=== PATIENT | male | born 1970 | race Two or more races ===

== ENCOUNTER 2024-10-13 04:22 | Emergency (ER) | payer OTHER, SELFPAY ==
--- NOTE | ~2024-10-13 | CT_ITS ---
CLINICAL HISTORY: HTN , RIVERA CT head without contrast Comparison: None Findings: Mild bilateral periventricular hypodensities are present. There is no evidence of hemorrhage, mass, mass effect, hydrocephalus. There is partial opacification of left mastoid air cells. Minimal mucosal thickening is seen in the right maxillary sinus. The orbits are unremarkable. No skull fracture. IMPRESSION: 1. No acute intracranial findings. 2. Mild chronic microvascular ischemic disease. 3. Mild left mastoid air cell and right maxillary sinus disease. This document has been electronically signed by: Alfredito Bone on 10/13/2024 05:27:13
[2024-10-13 04:30] VITALS: BP 178/102; BP 198/110; PULSE 84; PULSE 91; RESP 18; TEMP 36.7; O2SAT 95; O2SAT 96; BMI 33.9
--- NOTE | 2024-10-13 04:41 | ECG_ITS ---
Test Reason : HTN Blood Pressure : */* mmHG Vent. Rate : 74 BPM Atrial Rate : 74 BPM P-R Int : 128 ms QRS Dur : 96 ms QT Int : 396 ms P-R-T Axes : 36 -1 44 degrees QTcB Int : 439 ms Normal sinus rhythm Minimal voltage criteria for LVH, may be normal variant ( Andrew product ) Borderline ECG When compared with ECG of 15-Dec-2010 05:06, LVH noted Referred By: Freda Ordaz Electronically Signed By: JOSE ANGEL CORTEZ
--- NOTE | 2024-10-13 04:42 | ED_ITS ---
HPI - General Adult General Chief complaint: General Medical Stated complaint: High BP check 178/102, no CP/ discomfort Time Seen by Provider: 10/13/24 04:23 Source: patient and EMS Mode of arrival: EMS Limitations: no limitations History of Present Illness ED Provider: Dr. Freda Ordaz HPI narrative: Patient comes to the emergency room complaining of hypertension. Patient states that yesterday he was seen at [facility] for high blood pressure. Patient states that he was started on lisinopril 40 mg and hydrochlorothiazide 25 mg. Patient states that today he went home, before bedtime his blood pressure was a proximally 210 systolic. Patient was hoping that going to sleep it would help. Around 04:00, patient woke up to go to the bathroom, rechecked his blood pressure and it was still 210 systolic. Patient states that he has a slight headache, no chest pain or shortness of breath Related Data Previous Rx's ?Medication ?Instructions ?Recorded amlodipine 10 mg tablet 10 mg PO DAILY #90 tabs 10/13/24 Allergies Allergy/AdvReac Type Severity Reaction Status Date / Time aspirin Allergy Rash Verified 10/13/24 04:35 Penicillins Allergy Unknown Verified 10/13/24 04:35 Review of Systems 2 Review of Systems: Constitutional : No Weight loss, No Fever, No Chills, No Night Sweats, No Fatigue, No Malaise ENT/Mouth : No Hearing loss, No Ear Pain, No Nasal Congestion, No Sinus Pain, No Hoarseness, No sore throat, No Rhinorrhea, No Swallowing Difficulty Eyes: No Eye Pain, No Swelling, No Redness, No Foreign Body, No Discharge, No Vision Changes Cardiovascular : No Chest Pain, No SOB, No Dyspnea on Exertion, No Orthopnea, No Edema, No Palpitations, complaining of high blood pressure Respiratory : No Cough, No Sputum, No Wheezing, No Smoke Exposure, No Dyspnea Gastrointestinal : No Nausea, No Vomiting, No Diarrhea, No Constipation, No abdominal Pain, No Hematochezia, No Melena Genitourinary : no irregular bleeding, No Dysuria, No Urinary Frequency, No Hematuria, No Urinary Incontinence, No Urgency, No Flank Pain, No Urinary Flow Changes, No Hesitancy Musculoskeletal : No joint pain, No Myalgias, No Joint Swelling Skin : No Skin Lesions, No rash Neuro : No Weakness, No Numbness, No Paresthesias, No Loss of Consciousness, No Dizziness, complaining of mild Headache Psych : No Anxiety/Panic, No Depression, No SI/HI/AH/VH, No Social Issues, Heme/Lymph: No Bruising, No Bleeding,No Lymphadenopathy Endocrine : No Polyuria, No Polydipsia, No Temperature Intolerance [facility] Social History Social History Advance Directives: No Advance Directives Information Provided: Yes Do you have a plan to hurt others: No Plan Physical Exam ED Vital Signs: Vital Signs - 24 hr 10/13/24 04:30 10/13/24 05:02 10/13/24 05:17 Temperature 98.0 F Pulse Rate 84 80 75 Respiratory Rate 18 18 18 Blood Pressure 198/110 H 162/96 H 149/81 H Pulse Oximetry 95 Oxygen Delivery Method Room Air 10/13/24 05:37 Temperature Pulse Rate 76 Respiratory Rate 20 Blood Pressure 140/81 H Pulse Oximetry 98 Oxygen Delivery Method Room Air BMI result Body Mass Index 33.9 Const Other: Appearance: Alert. Oriented X3. No acute distress. Eyes: Pupils equal, round and reactive to light. ENT: Pharynx normal. Neck: Normal inspection. Neck supple. No lymph nodes noted. No crepitus CVS: Normal heart rate and rhythm. Pulses normal. Normal S1 and S2 Respiratory: No respiratory distress. Breath sounds normal. No Wheezing. No rales Abdomen: Soft and nontender. No rigidity. No distention. Skin: Skin warm and dry. Normal skin color. Normal skin turgor. Extremities: No lower extremity edema. No Lacerations. No Rash Neuro: Oriented X 3. No motor deficit. No sensory deficit. Moving all extremities. No slurred speech. CN 2 through 12 grossly intact Psych: calm, cooperative, normal affect Course Course Course Narrative: all of patient's labs EKG and imaging pending patient's current blood pressure 198/110, heart rate 84, patient receiving 1 dose of p.o. labetalol 100 mg Medications Administered Discontinued Medications Generic Name Dose Route Start Last Admin Trade Name Freq PRN Reason Stop Dose Admin Labetalol HCl 100 mg 10/13/24 04:43 10/13/24 04:59 Labetalol Hcl 100 Mg Tablet PO 10/13/24 04:44 100 mg ONCE ONE Administration Protocol Medical Decision Making Medical Decision Making [facility] Narrative: my interpretation of EKG: Normal sinus rhythm, heart rate 74, no ST segment depression or elevation, no T-wave inversion, QTC 439 my interpretation of labs: No significant abnormality patient's hematology or chemistry, troponin negative, BNP within normal limits. After 1 dose of p.o. labetalol, blood pressure improved to 149/81, heart rate 75 patient is already on hydrochlorothiazide 25 mg and lisinopril [address] scan of the head does not show any acute abnormality. Patient is medically cleared. Patient states that he has been very depressed, not SI or HI, patient requesting to be seen by the care team for depression. At this time, 05:40, patient's blood pressure 140/81, pulse 76, oxygen saturation 90% on room air, patient asymptomatic at this time, 06:24, patient states that he no longer wants to wait for care team, patient states that he just wants a sheet of information of numbers where he can call. At this time, we are ending physician observation Differential Diagnosis Differential Diagnoses: The differential diagnosis associated with the presentation includes ( hypertension, hypertensive urgency, anxiety, depression) Admission/Observation Consideration of admission/observation: Escalation of care including admission/observation considered ( given patient states she presentation that vitals, observation was considered) Lab Data MDM Lab Attestation statement: I reviewed the patient's lab results. 10/13/24 04:48 10/13/24 04:48 Labs: Lab Results 10/13/24 Range/Units 04:48 WBC 11.6 H (4.8-10.8) X10*3/uL RBC 5.03 (4.60-5.80) X10*6/uL Hgb 16.0 (14.0-18.0) g/dl Hct 43.6 (42.0-52.0) % MCV 86.7 (80.0-98.0) fL MCH 31.8 (27.0-33.0) pg MCHC 36.7 H (31.0-36.0) g/dl RDW 12.6 (11.0-16.0) % Plt Count 281 (160-400) X10*3/uL MPV 9.6 (9.4-12.4) fL Immature Gran % (Auto) 0.4 (0.0-0.4) % Neut % (Auto) 70.4 (45-73) % Lymph % (Auto) 18.8 L (20-40) % Isabela % (Auto) 8.3 (2-11) % Eos % (Auto) 1.5 (0-4) % Baso % (Auto) 0.6 (0-2) % Lymph # (Auto) 2.2 (1.2-4.9) X10*3/uL Isabela # (Auto) 1.0 (0.1-1.2) X10*3/uL Eos # (Auto) 0.2 (0.0-0.4) X10*3/uL Baso # (Auto) 0.1 (0.0-0.2) X10*3/uL Abs Immat Gran (auto) 0.05 H (0.00-0.03) X10*3/uL Absolute Neuts (auto) 8.2 (2.0-8.3) x10*3/uL Absolute Nucleated RBC 0.000 (0.0-0.012) X10*3/uL Nucleated RBC % (auto) 0.0 (0.0-0.2) /100WBC Sodium 136 (135-145) mmol/L Potassium 3.4 (3.3-5.1) mmol/L Chloride 101 (96-108) mmol/L Carbon Dioxide 25 (22-29) mmol/L Anion Gap 13 (12-20) BUN 18 H (9-16) mg/dL Creatinine 1.26 (0.5-1.4) mg/dL Estim Creat Clear Calc 71.5 Estimated GFR 59 Random Glucose 104 (60-115) mg/dL Calcium 9.4 (8.4-10.2) mg/dL Total Bilirubin 0.8 (0.0-1.0) mg/dL Direct Bilirubin 0.2 (0.0-0.5) mg/dL AST 26 (5-37) U/L ALT 27 (0-40) U/L Alkaline Phosphatase 84 (39-117) U/L Troponin I High Sens 5.1 (<3.5-35.0) ng/L B-Natriuretic Peptide 27 (<100) pg/mL Total Protein 7.5 (6.5-8.0) g/dL Albumin 4.3 (3.5-5.0) g/dL Independent Interpretation I performed an independent interpretation of an: EKG and CT Scan Radiology Impression Discussion of test interpretation with radiology: I have reviewed the radiologist's reading. Radiologist Impression: Mild bilateral periventricular hypodensities are present. There is no evidence of hemorrhage, mass, mass effect, hydrocephalus. There is partial opacification of left mastoid air cells. Minimal mucosal thickening is seen in the right maxillary sinus. The orbits are unremarkable. No skull fracture. Discharge Plan Discharge Clinical Impression: Hypertensive urgency, Depression Patient Disposition: Home, Self-Care Instructions: Depression (ED), Hypertensive Crisis (ED) Additional Instructions: continue taking the medications that you were prescribed, at this new medication, amlodipine. You need close follow-up with your primary care physician. Please keep a log of your blood pressures to share with your PCP. Make sure that you take your blood pressure in different settings including your house and a pharmacy for example. your medications were sent to [address] [place] [address] pharmacy in [place]. Please follow-up with your primary care physician tomorrow. If you have any worsening or new symptoms, please return to the emergency room or call 911 Prescriptions: New amlodipine 10 mg tablet 10 mg PO DAILY Qty: 90 0RF Print Language: Persian
[2024-10-13 04:53] LABS: Basophils Absolute Auto 0.1 X10*3/uL (0.0-0.2); Basophils Percent Auto 0.6 % (0-2); Eosinophils Absolute Auto 0.2 X10*3/uL (0.0-0.4); Eosinophils Percent Auto 1.5 % (0-4); Hematocrit 43.6 % (42.0-52.0); Imm Gran Abs Auto 0.05 X10*3/uL (0.00-0.03); Imm Gran Pct Auto 0.4 % (0.0-0.4); Lymphocytes Absolute Auto 2.2 X10*3/uL (1.2-4.9); Lymphocytes Percent Auto 18.8 % (20-40); MANUAL DIFF FLAG NO; Mean Corpuscular HGB Conc 36.7 g/dl (31.0-36.0); Mean Corpuscular Hemoglobin 31.8 pg (27.0-33.0); Mean Corpuscular Volume 86.7 fL (80.0-98.0); Mean Platelet Volume 9.6 fL (9.4-12.4); Monocytes Percent Auto 8.3 % (2-11); Neutrophils Absolute Auto 8.2 x10*3/uL (2.0-8.3); Neutrophils Percent Auto 70.4 % (45-73); Platelet Count 281 X10*3/uL (160-400); Red Blood Count 5.03 X10*6/uL (4.60-5.80); Red Cell Distribution Width 12.6 % (11.0-16.0); White Blood Count 11.6 X10*3/uL (4.8-10.8)
[2024-10-13] MEDS: Labetalol HCL 100 MG TABLET PO (04:59)
[2024-10-13 05:02] VITALS: BP 162/96; PULSE 80; RESP 18
[2024-10-13 05:09] LABS: Alanine Aminotransferase 27 U/L (0-40); Albumin Level 4.3 g/dL (3.5-5.0); Alkaline Phosphatase 84 U/L (39-117); Anion Gap 13 (12-20); Aspartate Amino Transferase 26 U/L (5-37); Bilirubin Direct 0.2 mg/dL (0.0-0.5); Bilirubin Total 0.8 mg/dL (0.0-1.0); Blood Urea Nitrogen 18 mg/dL (9-16); Calcium 9.4 mg/dL (8.4-10.2); Carbon Dioxide 25 mmol/L (22-29); Chloride 101 mmol/L (96-108); Creatinine Clr Calc Pharmacy 71.5; Estimated Glomerular Filt Rate 59; Glucose Random 104 mg/dL (60-115); Potassium 3.4 mmol/L (3.3-5.1); Sodium 136 mmol/L (135-145); Total Protein 7.5 g/dL (6.5-8.0)
[2024-10-13 05:12] LABS: Troponin-I High Sensitivity 5.1 ng/L (<3.5-35.0)
[2024-10-13 05:13] LABS: B Type Natriuretic Peptide 27 pg/mL (<100)
[2024-10-13 05:17] VITALS: BP 149/81; PULSE 75; RESP 18
--- OUTSIDE RECORDS SUMMARY | 2024-10-13 05:24 | XMS_ITS | Encounter Summary ---
Author Organization [facility] Address [address] [place] [address] [address] [place] [address] Care Team Providers Care Retail Sales Associate Bilingual Name Role Phone Anali Delong MD Primary Care Provider [phone] Reason for Visit * Reason Comments Med Refill Encounter Details Date Type Department Care Team ([facility] st Contact Info) Description 07/29/2023 Refill [facility] MEDICINE [address] [place] [address] Anali Delong MD [address] [place], [place] [id number] Depression, unspecified depression type Social History Tobacco Use Types Packs/Day Years Used Date Smoking Tobacco: Never Assessed Sex and Gender Information Value Date Recorded Sex Assigned at Male 05/11/2022 10:20 AM EDT Legal Sex Male 10:20 AM EDT Gender Identity Male 05/11/2022 10:20 AM EDT Sexual Orientation Lesbian or Ocampo 05/11/2022 10 :20 AM EDT documented as of this encounter Plan of Treatment Not on file documented as of this encounter Visit Diagnoses Diagnosis Depression, unspecified depression type documented in this encounter Care Teams Retail Sales Associate Bilingual Relationship Specialty Start Date End Date Anali Delong MD [address] [place] [address] PCP - General Family Medicine 06/24/18 08/05/23 documented as of this encounter
--- OUTSIDE RECORDS SUMMARY | 2024-10-13 05:24 | XMS_ITS | Clinical Summary ---
Author Organization [facility] Address [address] [facility] [address] [place] [address] Care Team Providers Care Carpet Tile Layer Name Role Phone Unavailable Primary Care Provider Unavailabl e Medications hydroCHLOROthiaz jennifer (HYDRODiuril) 25 MG tablet TAKE ONE TABLET BY MOUTH ONCE DAILY 30 tablet 11 02/25/2023 Active lisinopril 40 MG tablet TAKE ONE TABLET BY MOUTH ONCE DAILY 30 tablet 11 02/25/2023 Active QUEtiapine (SEROquel) 25 MG tabletIndication s:Depression, unspecified depression type TAKE ONE TABLET BY MOUTH TWO TIMES A DAY 60 tablet 05/31/2023 Active Social History Tobacco Use Types Packs/Day Years Used Date Smoking Tobacco: Never Assessed Sex and Gender Information Value Date Recorded Sex Assigned at Male 05/11/2022 10:20 AM EDT Legal Sex Male 10:20 AM EDT Gender Identity Male 05/11/2022 10:20 AM EDT Sexual Orientation Lesbian or Ocampo 05/11/2022 10 :20 AM EDT Last Filed Vital Signs Vital Sign Reading Time Taken Comments Blood Pressure 142/90 03/25/2022 12:09 AM EDT Pulse 88 03/25/2022 12:09 AM EDT Temperature - - Respiratory Rate - - Oxygen Saturation - - Inhaled Oxygen Concentration - - Weight 93 kg (205 lb) 03/25/2022 12:09 AM EDT Height 167.6 cm (5' 6 ) 03/25/2022 12:09 AM EDT Body Mass Index 33.09 03/25/2022 12:09 AM EDT Plan of Treatment Health Maintenance Due Date Last Done Comments CT Colonography 1969 Colonoscopy 1969 Colorectal Cancer Screening 1969 Depression Screening 1969 FIT DNA/Cologuard 1969 FIT 1969 FOBT 1969 Lipid Panel 1969 Sigmoidoscopy 1969 Alcohol/Substance Use Screening 1981 Tobacco Screening 1981 Hepatitis B Vaccines (1 of 3 - 19+ 3-dose series) 1988 Pneumococcal Vaccine: 50+ Years (2 of 2 - PCV) 01/19/2023 01/19/2022 COVID-19 Vaccine (1 - 2023-2 5 season) 2024 Influenza Vaccine (#1) 2024 2, 06/24/2018, 05/17/2007 DTaP/Tdap/Td Vaccines (2 - T d or Tdap) 05/19/2029 05/19/2019 RSV Patients and Patients Aged 60 years or older (1 - 1-dose 75+ series) 2044 Pneumococcal Vaccine: Pediatrics (0 to 5 Years) and At-Risk Patients (6 to 49) Years) Aged Out 01/19/2022 No longer eligible b ased on patient's age to complete this topic Zoster Vaccines Completed 06/29/2022, 01/19/2022 HIB Vaccines Aged Out No longer eligi ble based on patient's age to complete this topic HPV Vaccines Aged Out No longer eligi ble based on patient's age to complete this topic Hepatitis A Vaccines Aged Out No long er eligible based on patient's age to complete this topic IPV Vaccines Aged Out No longer eligi ble based on patient's age to complete this topic Meningococcal Vaccine Aged Out No linh debra eligible based on patient's age to complete this topic RSV under 20 months Aged Out No longe r eligible based on patient's age to complete this topic Rotavirus Vaccines Aged Out No longer eligible based on patient's age to complete this topic
--- OUTSIDE RECORDS SUMMARY | 2024-10-13 05:24 | XMS_ITS | Encounter Summary ---
Author Organization [facility] Address [address] [facility] [address] [place] [address] Care Team Providers Care Assistant Loan Processor Name Role Phone Anali Delong MD Primary Care Provider [phone] Reason for Visit * Reason Comments Med Refill Encounter Details Date Type Department Care Team ([facility] Contact Info) Description 02/24/2023 Refill [facility] MEDICINE [address] [place] [address] Ricarda Browne MD [address] [place] [address] Depression, unspecified depression type Social History Tobacco [...] type documented in this encounter Care Teams Assistant Loan Processor Relationship Specialty Start Date End Date nAali Delong MD [address] [place] [address] PCP - General Family Medicine 06/24/18 08/05/23 documented as of this encounter
--- OUTSIDE RECORDS SUMMARY | 2024-10-13 05:24 | XMS_ITS | Encounter Summary ---
Author Organization [employer] [place] [address] Care Team Providers Care Sheriff Name Role Phone Nandini Hernandez MD Primary Care Provider [phone] Reason for Visit * Reason Comments Chest Pain Encounter Details Date Type Department Care Team (Late st Contact Info) Description 10/11/2024 5:57 PM EDT - 10/11/2024 10:36 PM EDT Emergency [facility] Emergency [address] [place] [address] Hypertension, unspecified type (Primary Dx); Hypokalemia Discharge Disposition: Home or Self Care Social History Tobacco Use Types Packs/Day Years Used Date Smoking Tobacco: Never Assessed Comments Unknown Sex and Gender Information Value Date Recorded Sex Assigned at Female 10/11/2024 7:37 PM EDT Legal Sex Male 8:50 PM EST Gender Identity Female 10/11/2024 7:37 PM EDT Sexual Orientation Straight 10/11/2024 7: 37 PM EDT documented as of this encounter Last Filed Vital Signs Vital Sign Reading Time Taken Comments Blood Pressure 176/101 10/11/2024 10:07 PM EDT Pulse 88 10/11/2024 10:07 PM EDT Temperature 36.8 ??C (98.2 ??F) 10/11/2024 10:07 PM E DT Respiratory Rate 20 10/11/2024 10:07 PM EDT Oxygen Saturation 97% 10/11/2024 10:07 PM EDT Inhaled Oxygen Concentration - - Weight 95.3 kg (210 lb) 10/11/2024 7:03 PM EDT Height 167.6 cm (5' 6 ) 10/11/2024 7:03 PM EDT Body Mass Index 33.89 10/11/2024 7:03 PM EDT documented in this encounter Functional Status * Are you deaf or do you have serious difficulty hearing? Answer Date of Assessment Author No 10/11/2024 7:16 PM EDT Ailyn Soares RN * Are you blind or do you have serious difficulty seeing, even when wearing glasses? Answer Date of Assessment Author No 10/11/2024 7:16 PM EDT Ailyn Soares RN * Do you have serious difficulty walking or climbing stairs? Answer Date of Assessment Author No 10/11/2024 7:16 PM EDT Ailyn Soares RN * Do you have serious difficulty dressing or bathing? Answer Date of Assessment Author No 10/11/2024 7:16 PM EDT Ailyn Soares RN * Because of a physical, mental, or emotional condition, do you have serious difficulty doing errandsalone such as visiting the doctor? Answer Date of Assessment Author No 10/11/2024 7:16 PM EDT Ailyn Soares RN documented as of this encounter Mental Status * Because of a physical, mental, or emotional condition, do you have serious difficulty concentrating, remembering, or making decisions? (5 years old or older) Answer Entry Date Author No 10/11/2024 7:16 PM EDT Ailyn Soares RN documented in this encounter Discharge Instructions * Discharge Instructions* AURORA Nicolas - 10/11/2024 9:52 PM EDT Your blood pressure returned to a normal range without any intervention. Your cardiac workup otherwise today was unremarkable. You were found to have a low potassium in the emergency department whichwas repleted. I do recommend that you follow-up with your regular care provider to recheck these levels to ensure that this is not a chronic issue for you. Please call 911 or otherwise present back to the emergency department for any new or worsening symptoms of concern. * Attachments The following attachments cannot be sent through Care Everywhere. * Hypokalemia (French) documented in this encounter Discharge Disposition Disposition Code Departure Means Destination Comment s Home or Self Care documented in this encounter Progress Notes * Debi Chapman RN - 10/11/2024 5:58 PM EDT BIBA from home. VNA at home found bp 210/100. Hx of htn, compliant with home meds. Pt reports chesttightness shortly after, described as minor discomfort. Denies SOB, dizziness. documented in this encounter Miscellaneous Notes * ED Bed Hold Note - Coco Harris RN - 10/11/2024 5:57 PM EDT Bed: [facility] Expected date: Expected time: Means of arrival: Comments: 55yo cp/htn documented in this encounter Plan of Treatment Upcoming Encounters Date Type Department Care Team (Late st Contact Info) Description 02/16/2025 8:00 AM EDT Office Visit Adult Medicine [facility] [address] [place] [address] Nandini Hernandez MD [address] [place] [address] documented as of this encounter Procedures Procedure Name Priority Date/Time Associated Diagnosis Comments ECG ANNOTATED 10/12/2024 ECG ANNOTATED 10/12/2024 ECG 12-LEAD STAT 10/11/2024 7:53 PM EDT TROPONIN I HIGH SENSITIVITY STAT 10/11/2024 7:25 PM EDT XR CHEST 2 VIEWS STAT 10/11/2024 6:45 PM EDT TROPONIN I HIGH SENSITIVITY STAT 10/11/2024 6:15 PM EDT CBC WITH AUTO DIFFERENTIAL STAT 10/11/2024 6:15 PM EDT CBC AND DIFFERENTIAL STAT 10/11/2024 6:15 PM EDT MAGNESIUM STAT 10/11/2024 6:15 PM EDT LIPASE STAT 10/11/2024 6:15 PM EDT COMPREHENSIVE METABOLIC PANEL STAT 10/11/2024 6:15 PM EDT ECG 12-LEAD STAT 10/11/2024 6:04 PM EDT documented in this encounter Results * ECG-Annotated (10/12/2024) us Provider Onbase MD ECG ORDERABLES Final Result * ECG-Annotated (10/12/2024) us Provider Onbase MD ECG ORDERABLES Final Result * ECG 12 lead (10/11/2024 7:53 PM EDT) [facility] Ventricular Rate ECG 81 BPM GEMUSE Atrial Rate 81 BPM GEMUSE P-R Interval 150 ms GEMUSE QRS Duration 82 ms GEMUSE Q-T Interval 400 ms GEMUSE QTc 464 ms GEMUSE P Wave [place] 44 degrees GEMUSE R [place] -17 degrees GEMUSE T [place] 5 degrees GEMUSE ECG Interpretation Normal sinus rhythm Nonspecific T wave abnormality When compared with ECG of 11-OCT-2024 18:04, No significant change was found Confirmed by Harjinder TATE YUFENG ([id number]) on 10/12/2024 7:29:31 PM GEMUSE 10/11/2024 7:53 PM EDT 10/12/2024 7:29 PM EDT us Malcolm Mane DO ECG ORDERABLES Final Result GEMUSE * Troponin I high sensitivity (10/11/2024 7:25 PM EDT) [facility] High Sensitivity Troponin I 12 <=79 ng/L LAB CHEMISTRY METHOD 10/11/2024 7:[address] [facility] Blood Venous blood specimen / Unknown Venipuncture / Unknown 10/11/2024 7:25 PM EDT 10/11/2024 7:[address] [facility] - 10/11/2024 7:58 PM EDT High levels of biotin in samples may falsely decrease hsTroponin values. ??Use caution when interpreting hsTroponin results in patients taking biotin who exhibit renal impairment (eGFR <60) or in patients taking more than 20 mg/day of biotin. us Malcolm Mane DO LAB BLOOD ORDERABLES Final Res ult [facility] [address] [place] [address], [place] [phone] * XR Chest 2 Views (10/11/2024 6:45 PM EDT) Anatomical Region Laterality Modality Body Radiographic Melissa ging 10/12/2024 8:56 AM EDT Impressions 10/12/2024 8:56 AM EDT No acute findings. -------- FINAL REPORT -------- Dictated By: Long Wiley Dictated Date: 10/12/2024 08:56 ET Assigned Physician: Long Wiley Reviewed and Electronically Signed By: Long Wiley Signed Date: 10/12/2024 08:56 ET Workstation ID: [id number] Transcribed By: Self Edit Transcribed Date: 10/12/2024 08:56 ET Narrative 10/12/2024 8:56 AM EDT PROCEDURE: PA and lateral radiographs of the chest. HISTORY: chest pain. COMPARISON: 07/12/2022. FINDINGS: Lungs, pleural spaces, and pulmonary vasculature are normal. ??Atherosclerotic calcification of the aorta. ??Upper normal heart size. ??Mild degenerative changes of the spine. Procedure Note Long Wiley MD - 10/12/2024 PROCEDURE: PA and lateral radiographs of the chest. HISTORY: chest pain. COMPARISON: 07/12/2022. FINDINGS: Lungs, pleural spaces, and pulmonary vasculature are normal.Atherosclerotic calcification of the aorta. Upper normal heart size.Mild degenerative changes of the spine. IMPRESSION: No acute findings. -------- FINAL REPORT -------- Dictated By: Long Wiley Dictated Date: 10/12/2024 08:56 ET Assigned Physician: Long Wiley Reviewed and Electronically Signed By: Long Wiley Signed Date: 10/12/2024 08:56 ET Workstation ID: [id number] Transcribed By: Self Edit Transcribed Date: 10/12/2024 08:56 ET Malcolm Mane DO IMG XR PROCEDURES Final Result * (ABNORMAL) CBC auto differential (10/11/2024 6:15 PM EDT) Pathologist [facility] WBC 9.5 4.8 - 10.8 K/mcL LAB HEMETOLOGY METHOD 10/11/2024 6:[address] [facility] RBC 4.80 4.50 - 5.50 M/mcL LAB HEMETOLOGY METHOD 10/11/2024 6:[address] [facility] Hemoglobin 15.5 13.5 - 17.5 g/dL LAB HEMETOLOGY METHOD 10/11/2024 6:[address] [facility] Hematocrit 43.4 42.0 - 54.0 % LAB HEMETOLOGY METHOD 10/11/2024 6:[address] [facility] MCV 90.8 79.0 - 98.0 FL LAB H[facility]ETOLOGY [facility] MCH 32.4(H) 27.0 - 32.0 pcg LAB HEMETOLOGY [facility] MCHC 35.7 32.0 - 37.0 g/dL LAB HEMETOLOGY METHOD 10/11/2024 6:41 PM [facility] RDW 12.8 11.0 - 15.0 % LAB HEMETOLOGY METHOD 10/11/2024 6:41 PM [facility] Platelets 264 130 - 400 K/mcL LAB HEMETOLOGY METHOD 10/11/2024 6:41 PM [facility] MPV 10.2 7.0 - 11.0 FL LAB HEMETOLOGY METHOD 10/11/2024 6:41 PM [facility] NRBC 0.0 <1.0 % LAB HEMETOLOGY METHOD 10/11/2024 6:41 PM [facility] NRBC Absolute 0.00 <0.10 K/mcL LAB HEMETOLOGY METHOD 10/11/2024 6:41 PM [facility] Neutrophils Relative 61.1 % LAB HEMETOLOGY METHOD 10/11/2024 6:41 PM [facility] Lymphocytes Relative 26.6 % LAB HEMETOLOGY METHOD 10/11/2024 6:41 PM [facility] Monocytes Relative 8.4 % LAB HEMETOLOGY METHOD 10/11/2024 6:41 PM [facility] Eosinophils Relative 2.5 % LAB HEMETOLOGY METHOD 10/11/2024 6:41 PM [facility] Basophils Relative 1.0 % LAB HEMETOLOGY METHOD 10/11/2024 6:41 PM [facility] Immature Granulocytes Relative 0.4 % LAB HEMETOLOGY METHOD 10/11/2024 6:41 PM [facility] Neutrophils Absolute 5.78 1.50 - 7.00 K/mcL LAB HEMETOLOGY METHOD 10/11/2024 6:41 PM [facility] Lymphocytes Absolute 2.52 1.00 - 5.00 K/mcL LAB HEMETOLOGY METHOD 10/11/2024 6:[address] [facility] Monocytes Absolute 0.79 0.20 - 1.00 K/[facility] LAB HEMETOLOGY METHOD 10/11/2024 6:[address] [facility] Eosinophils Absolute 0.24 0.00 - 0.50 K/[facility] LAB HEMETOLOGY METHOD 10/11/2024 6:[address] [facility] Basophils Absolute 0.09 0.00 - 0.20 K/[facility] LAB HEMETOLOGY METHOD 10/11/2024 6:[address] [facility] Immature Granulocytes Absolute 0.04(H) 0.00 - 0.03 K/[facility] LAB HEMETOLOGY METHOD 10/11/2024 6:[address] [facility] Blood Venous blood specimen / Unknown Venipuncture / Unknown 10/11/2024 6:15 PM EDT 10/11/2024 6:33 PM EDT us Malcolm Mane DO LAB BLOOD ORDERABLES Final Res ult Performing Organization Address City/[facility]/ZIP Co de Phone Number [facility] [address] [place] [address], [place] [phone] * Magnesium (10/11/2024 6:15 PM EDT) Magnesium 2.3 1.9 - 2.6 mg/dL LAB CHEMISTRY METHOD 10/11/2024 7:[address] [facility] Blood Venous blood specimen / Unknown Venipuncture / Unknown 10/11/2024 6:15 PM EDT 10/11/2024 6:33 PM EDT us Malcolm Mane DO LAB BLOOD ORDERABLES Final Res ult [facility] [address] [place] [address], [place] [phone] * Lipase (10/11/2024 6:15 PM EDT) Pathologist [facility] Lipase 29 13 - 75 unit/L LAB CHEMISTRY METHOD 10/11/2024 7:[address] [facility] Blood Venous blood specimen / Unknown Venipuncture / Unknown 10/11/2024 6:15 PM EDT 10/11/2024 6:33 PM EDT us Malcolm Mane DO LAB BLOOD ORDERABLES Final Res ult [facility] [address] [place] [address], [place] [phone] * (ABNORMAL) Comprehensive metabolic panel (10/11/2024 6:15 PM EDT) [facility] Sodium 136 133 - 145 mmol/L LAB CHEMISTRY METHOD 10/11/2024 7:25 PM [facility] Potassium 3.3(L) 3.5 - 5.5 mmol/L LAB CHEMISTRY METHOD 10/11/2024 7:25 PM [facility] Chloride 101 96 - 110 mmol/L LAB CHEMISTRY METHOD 10/11/2024 7:25 PM [facility] CO2 27 21 - 32 mmol/L LAB CHEMISTRY METHOD 10/11/2024 7:25 PM [facility] Anion Gap 8 3 - 11 LAB CHEMISTRY METHOD 10/11/2024 7:25 PM [facility] Glucose 124(H) 70 - 100 mg/dL LAB CHEMISTRY METHOD 10/11/2024 7:25 PM [facility] BUN 17 5 - 25 mg/dL LAB CHEMISTRY METHOD 10/11/2024 7:25 PM [facility] Creatinine 1.24 0.70 - 1.30 mg/dL LAB CHEMISTRY METHOD 10/11/2024 7:25 PM [facility] eGFR 69 >=60 mL/min/1. 73m2 LAB CHEMISTRY METHOD 10/11/2024 7:25 PM [facility] Comment:Calculation based on the??Chronic Kidney Disease Epidemiology Collaboration (CKD-EPI) equation refit??without adjustment for race. BUN/Creatinine Ratio 13.7 LAB CHEMISTRY METHOD 10/11/2024 7:25 PM [facility] Calcium 9.1 8.5 - 10.5 mg/dL LAB CHEMISTRY METHOD 10/11/2024 7:25 PM [facility] AST (SGOT) 15 10 - 42 unit/L LAB CHEMISTRY METHOD 10/11/2024 7:25 PM [facility] ALT (SGPT) 27 10 - 60 unit/L LAB CHEMISTRY METHOD 10/11/2024 7:25 PM [facility] Alkaline Phosphatase 95 42 - 121 unit/L LAB CHEMISTRY METHOD 10/11/2024 7:25 PM [facility] Total Protein 7.2 6.0 - 8.0 g/dL LAB CHEMISTRY METHOD 10/11/2024 7:25 PM [facility] Albumin 3.7 3.2 - 5.0 g/dL LAB CHEMISTRY METHOD 10/11/2024 7:25 PM [facility] Total Bilirubin 0.2 0.0 - 1.4 mg/dL LAB CHEMISTRY METHOD 10/11/2024 7:25 PM [facility] Blood Venous blood specimen / Unknown Venipuncture / Unknown 10/11/2024 6:15 PM EDT 10/11/2024 6:33 PM EDT us Malcolm Mane DO LAB BLOOD ORDERABLES Final Res ult [facility] [address] [place] [address], [place] [phone] * Troponin I high sensitivity (10/11/2024 6:15 PM EDT) [facility] High Sensitivity Troponin I 9 <=79 ng/L LAB CHEMISTRY METHOD 10/11/2024 7:[address] [facility] Blood Venous blood specimen / Unknown Venipuncture / Unknown 10/11/2024 6:15 PM EDT 10/11/2024 6:[address] [facility] - 10/11/2024 7:13 PM EDT High levels of biotin in samples may falsely decrease hsTroponin values. ??Use caution when interpreting hsTroponin results in patients taking biotin who exhibit renal impairment (eGFR <60) or in patients taking more than 20 mg/day of biotin. Malcolm Mane DO LAB BLOOD ORDERABLES Final Res ult Performing Organization Address City/[facility]/ZIP Co de Phone Number [facility] [address] [place] [address], [place] [phone] * ECG 12 lead (10/11/2024 6:04 PM EDT) [facility] Ventricular Rate ECG 88 BPM GEMUSE Atrial Rate 88 BPM GEMUSE P-R Interval 130 ms GEMUSE QRS Duration 98 ms GEMUSE Q-T Interval 394 ms GEMUSE QTc 476 ms GEMUSE P Wave [place] 53 degrees GEMUSE R [place] -16 degrees GEMUSE T [place] 75 degrees GEMUSE ECG Interpretation Normal sinus rhythm Normal ECG When compared with ECG of 17-AUG-2016 15:19, No significant changes are noted Confirmed by KAYA VILLAR ([id number]) on 10/11/2024 8:26:22 PM GEMUSE 10/11/2024 6:04 PM EDT 10/11/2024 8:26 PM EDT us Malcolm Mane DO ECG ORDERABLES Final Result Performing Organization Address City/[facility]/ZIP Co de Phone Number GEMUSE documented in this encounter Visit Diagnoses Diagnosis Hypertension, unspecified type- Primary Hypokalemia Hypopotassemia documented in this encounter Administered Medications Inactive Administered Medications - up to 3 most recent administrations Medication Order MAR Action Action Date Dose Rate Site potassium chloride (KLOR-CON M20) CR tablet 20 mEq 20 mEq, oral, Once, On Wed10/11/24 at 2135, For 1 dose, Tablet may be swallowed whole (do not crush/chew/suck on) OR broken in half and each half swallowed separately OR dissolved (whole tablet) in ~4 ounces of water (allow ~2 minutes to dissolve, stir well and administer immediately). Given 10/11/2024 10:14 PM EDT 20 mEq potassium chloride (KLOR-CON M20) CR tablet 40 mEq 40 mEq, oral, Once, On Wed10/11/24 at 193, For 1 dose, Tablet may be swallowed whole (do not crush/chew/suck on) OR broken in half and each half swallowed separately OR dissolved (whole tablet) in ~4 ounces of water (allow ~2 minutes to dissolve, stir well and administer immediately). Given 10/11/2024 8:06 PM EDT 40 mEq documented in this encounter Active and Recently Administered Medications Times are shown in EDT. Scheduled Medication Order 10/09/2024 10/10/2024 10/11/2024 potassium chloride (KLOR-CON M20) CR tablet 20 mEq (COMPLETED)(Linked Group 1) 20 mEq, oral, Once, On Wed10/11/24 at 2135, For 1 dose, Tablet may be swallowed whole (do not crush/chew/suck on) OR broken in half and each half swallowed separately OR dissolved (whole tablet) in ~4 ounces of water (allow ~2 minutes to dissolve, stir well and administer immediately). 221 (Given - Provid er: Julienne Soares RN) potassium chloride (KLOR-CON M20) CR tablet 40 mEq (COMPLETED)(Linked Group 1) 40 mEq, oral, Once, On Wed10/11/24 at 1935, For 1 dose, Tablet may be swallowed whole (do not crush/chew/suck on) OR broken in half and each half swallowed separately OR dissolved (whole tablet) in ~4 ounces of water (allow ~2 minutes to dissolve, stir well and administer immediately). 2006 (Given - Provid er: Julienne Soares RN) Linked Groups Order Group 1: potassium chloride (KLOR-CON M20) CR tablet 40 mEq (COMPLETED)Jump to med 40 mEq, oral, Once, On Wed10/11/24 at 1935, For 1 dose, Tablet may be swallowed whole (do not crush/chew/suck on) OR broken in half and each half swallowed separately OR dissolved (whole tablet) in ~4 ounces of water (allow ~2 minutes to dissolve, stir well and administer immediately). Followed by potassium chloride (KLOR-CON M20) CR tablet 20 mEq (COMPLETED)Jump to med 20 mEq, oral, Once, On Wed10/11/24 at 2135, For 1 dose, Tablet may be swallowed whole (do not crush/chew/suck on) OR broken in half and each half swallowed separately OR dissolved (whole tablet) in ~4 ounces of water (allow ~2 minutes to dissolve, stir well and administer immediately). documented in this encounter Care Teams Sheriff Relationship Specialty Start Date End Date Nandini Hernandez MD [address] [place] [address] PCP - General 09/28/22 documented as of this encounter
--- OUTSIDE RECORDS SUMMARY | 2024-10-13 05:24 | XMS_ITS | Encounter Summary ---
Author Organization [employer] [facility] Address [address] [place] [address] [address] [place] [address] Care Team Providers Care Passenger Barge Master Name Role Phone Anali Delong MD Primary Care Provider [phone] Reason for Visit * Reason Comments Med Refill Encounter Details Date Type Department Care Team ([facility] st Contact Info) Description 07/08/2023 Refill [facility] [address] [place] [address] Anali Delong MD [address] [place], [place] [phone] Depression, unspecified depression type Social History Tobacco [...] type documented in this encounter Care Teams Passenger Barge Master Relationship Specialty Start Date End Date Anali Delong MD [address] [place] [address] PCP - General Family Medicine 06/24/18 08/05/23 documented as of this encounter
--- OUTSIDE RECORDS SUMMARY | 2024-10-13 05:24 | XMS_ITS | Encounter Summary ---
Author Organization [employer] [facility] Address [address] [place] [address] [address] [place] [address] Care Team Providers Care Hydrometer Calibrator Name Role Phone Anali Delong MD Primary Care Provider [phone] Reason for Visit * Reason Comments Med Refill Encounter Details Date Type Department Care Team ([facility] st Contact Info) Description 02/01/2023 Refill [facility] [address] [place] [address] Anali Delong MD [address] [place], [place] [phone] Social History Tobacco Use Types Packs/Day Years [...] documented as of this encounter Visit Diagnoses Not on filedocumented in this encounter Care Teams Hydrometer Calibrator Relationship Specialty Start Date End Date Anali Delong MD [address] [place] [address] PCP - General Family Medicine 06/24/18 08/05/23 documented as of this encounter
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
--- OUTSIDE RECORDS SUMMARY | 2024-10-13 05:24 | XMS_ITS | Encounter Summary ---
Author Organization [facility] Address [address] [place] [address] [address] [place] [address] Care Team Providers Care Ship Cleaner Name Role Phone Anali Delong MD Primary Care Provider [phone] Reason for Visit * Reason Comments Med Refill Encounter Details Date Type Department Care Team ([facility] st Contact Info) Description 01/28/2023 Refill [facility] [address] [place] [address] Anali Delong MD [address] [place], [place] [phone] Social History Tobacco Use Types Packs/Day Years [...] on filedocumented in this encounter Care Teams Ship Cleaner Relationship Specialty Start Date End Date Anali Delong MD [address] [place] [address] PCP - General Family Medicine 06/24/18 08/05/23 documented as of this encounter
--- OUTSIDE RECORDS SUMMARY | 2024-10-13 05:24 | XMS_ITS | Encounter Summary ---
Author Organization [employer] [facility] Address [address] [place] [address] Care Team Providers Care Javascript Developer Name Role Phone Unavailable Primary Care Provider Unavailabl e Reason for Visit * Reason Comments Med Refill Encounter Details Date Type Department Care Team ([facility] st Contact Info) Description 09/29/2023 Refill [facility] [address] [place] [address] Anali Delong MD [address] [place] [address] Depression, unspecified depression type Social History Tobacco [...]
--- OUTSIDE RECORDS SUMMARY | 2024-10-13 05:24 | XMS_ITS | Clinical Summary ---
Author Organization [facility] Address [address] [place] [address] Phone Care Team Providers Care Hands And Dial Inspector Name Role Phone Nandini Hernandez MD Primary Care Provider Allergies Active Allergy Reactions Criticality Noted Date Comments Aspirin Rash Low 08/17/2016 Encounters Date Type Department Care Team Description 10/11/2024 5:57 PM EDT - 10/11/2024 10:36 PM EDT Emergency [facility] Emergency [address] [place] [address] Hypertension, unspecified type (Primary Dx); Hypokalemia Discharge Disposition: Home or Self Care 10/11/2024 Telephone Adult Medicine [address] [phone] Nandini Hernandez MD Hypertension from Last 3 Months Social History Tobacco Use Types Packs/Day Years Used Date Smoking Tobacco: Never Assessed Comments Unknown Sex and Gender Information Value Date Recorded Sex Assigned at Female 10/11/2024 7:37 PM EDT Legal Sex Male 8:50 PM EST Gender Identity Female 10/11/2024 7:37 PM EDT Sexual Orientation Straight 10/11/2024 7: 37 PM EDT Last Filed Vital Signs Vital Sign [...] Mass Index 33.89 10/11/2024 7:03 PM EDT Plan of Treatment Upcoming Encounters Date Type Department Care Team (Late st Contact Info) Description 02/16/2025 8:00 AM EDT Office Visit Adult Medicine [facility] [address] [place] [address] Nandini Hernandez MD [address] [place] [address] Health Maintenance Due Date Last Done Comments Breast Cancer Screening 1969 Hepatitis B Vaccines (1 of 3 - 19+ 3-dose series) 1988 Cervical Cancer Screening: P ap Smear 1990 Pneumococcal Vaccine: 50+ Years (2 of 2 - PCV) 01/19/2023 01/19/2022 Cholesterol Screening (Lipid Panel) 08/06/2023 Colorectal Cancer Screening: Colonoscopy 08/06/2023 Depression Screening 08/06/2023 HIV Screening 08/06/2023 Hepatitis C Screening 08/06/2023 Medicare Annual Wellness Visit 08/06/2023 Social Influencers of Health Screening 08/06/2023 COVID-19 Vaccine ( - 2023-2 5 season) 2024 Influenza Vaccine (Season Ended) 2025 06/29/2022, 06/24/2018, 05/17/2007 Hypertension/CHF/CAD Annual BMP Blood Test 10/11/2025 10/11/2024 DTaP,Tdap,and Td Vaccines (2 - Td or Tdap) 05/19/2029 05/19/2019 Pneumococcal Vaccine: Pediatrics (0 to 5 Years) and At-Risk Patients (6 to 64 Years) Aged Out 01/19/2022 No longer eligible [...] on patient's age to complete this topic MMR Vaccines Aged Out No longer eligi ble based on patient's age to complete this topic Meningococcal ACWY Vaccine Aged Out N o longer eligible based on patient's age to complete this topic Meningococcal B Vacine Aged Out No lo nger eligible based on patient's age to complete this topic RSV Immunization Patients Under 20 months Aged Out No longer eligible b ased on patient's age to complete this topic Varicella Vaccines Aged Out No longer eligible based on patient's age to complete this topic Procedures Procedure Name Priority Date/Time Associated Diagnosis Comments ECG ANNOTATED 10/12/2024 ECG ANNOTATED 10/12/2024 ECG 12-LEAD STAT 10/11/2024 7:53 PM EDT TROPONIN I HIGH SENSITIVITY STAT 10/11/2024 7:25 PM EDT XR CHEST 2 VIEWS STAT 10/11/2024 6:45 PM EDT CBC WITH AUTO DIFFERENTIAL STAT 10/11/2024 6:15 PM EDT MAGNESIUM STAT 10/11/2024 6:15 PM EDT LIPASE STAT 10/11/2024 6:15 PM EDT COMPREHENSIVE METABOLIC PANEL STAT 10/11/2024 6:15 PM EDT CBC AND DIFFERENTIAL STAT 10/11/2024 6:15 PM EDT TROPONIN I HIGH SENSITIVITY STAT 10/11/2024 6:15 PM EDT ECG 12-LEAD STAT 10/11/2024 6:04 PM EDT from Last 3 Months Results * ECG-Annotated (10/12/2024) Only the most recent of2 resultswithin the time period is included. Provider Onbase MD ECG ORDERABLES Final Result * ECG 12 lead (10/11/2024 7:53 PM EDT) Only the most recent of2 resultswithin the time period is included. Pathologist [facility] Ventricular Rate ECG 81 BPM GEMUSE Atrial Rate 81 BPM GEMUSE P-R Interval 150 ms GEMUSE QRS Duration 82 ms GEMUSE Q-T Interval 400 ms GEMUSE QTc 464 ms GEMUSE P Wave Monarch 44 degrees GEMUSE R Monarch -17 degrees GEMUSE T Monarch 5 degrees GEMUSE ECG Interpretation Normal sinus rhythm Nonspecific T wave abnormality When compared with ECG of 11-OCT-2024 18:04, No significant change was found Confirmed by Harjinder TATE YUFENG ([id number]) on 10/12/2024 7:29:31 PM GEMUSE 10/11/2024 7:53 PM EDT 10/12/2024 7:29 PM EDT Malcolm Mane DO ECG ORDERABLES Final Result GEMUSE * Troponin I high sensitivity (10/11/2024 7:25 PM EDT) Only the most recent of2 resultswithin the time period is included. [facility] High Sensitivity Troponin I 12 <=79 ng/L LAB CHEMISTRY METHOD 10/11/2024 7:58 PM EDT [facility] Blood Venous blood specimen / Unknown Venipuncture / Unknown 10/11/2024 7:25 PM EDT 10/11/2024 7:30 PM EDT Narrative [facility] - 10/11/2024 7:58 PM EDT High levels of biotin in samples may falsely decrease hsTroponin values. ??Use caution when interpreting hsTroponin results in patients taking biotin who exhibit renal impairment (eGFR <60) or in patients taking more than 20 mg/day of biotin. us Malcolm Mane DO LAB BLOOD ORDERABLES Final Res ult [facility] [place] ([facility]) [facility] [address] [place] [address], [place] [phone] * XR Chest 2 Views (10/11/2024 6:45 PM EDT) Anatomical Region Laterality Modality Body Radiographic Melissa ging 10/12/2024 8:56 AM EDT Impressions 10/12/2024 8:56 AM EDT No acute findings. -------- FINAL REPORT -------- Dictated By: Long Wiley Dictated Date: 10/12/2024 08:56 ET Assigned Physician: Long Wiley Reviewed and Electronically Signed By: Long Wiley Signed Date: 10/12/2024 08:56 ET Workstation ID: [id number] Transcribed By: Self Edit Transcribed Date: 10/12/2024 [...] Signed Date: 10/12/2024 08:56 ET Workstation ID: [id number] Transcribed By: Self Edit Transcribed Date: 10/12/2024 08:56 ET Malcolm Mane DO IMG XR PROCEDURES Final Result * (ABNORMAL) CBC auto differential (10/11/2024 6:15 PM EDT) [facility] WBC 9.5 4.8 - 10.8 K/mcL LAB HEMETOLOGY METHOD 10/11/2024 6:41 PM EDT [facility] RBC 4.80 4.50 - 5.50 M/mcL LAB HEMETOLOGY METHOD 10/11/2024 6:41 PM EDT [facility] Hemoglobin 15.5 13.5 - 17.5 g/dL LAB HEMETOLOGY METHOD 10/11/2024 6:41 PM EDT [facility] Hematocrit 43.4 42.0 - 54.0 % LAB HEMETOLOGY METHOD 10/11/2024 6:41 PM EDT [facility] MCV 90.8 79.0 - 98.0 FL LAB HEMETOLOGY METHOD 10/11/2024 6:41 PM EDT [facility] MCH 32.4(H) 27.0 - 32.0 pcg LAB HEMETOLOGY METHOD 10/11/2024 6:41 PM EDT [facility] MCHC 35.7 32.0 - 37.0 g/dL LAB HEMETOLOGY METHOD 10/11/2024 6:41 PM EDT [facility] RDW 12.8 11.0 - 15.0 % LAB HEMETOLOGY METHOD 10/11/2024 6:41 PM EDT [facility] Platelets 264 130 - 400 K/mcL LAB HEMETOLOGY METHOD 10/11/2024 6:41 PM EDT [facility] MPV 10.2 7.0 - 11.0 FL LAB [facility]ETOLOGY [facility] NRBC 0.0 <1.0 % LAB HEMETOLOGY METHOD 10/11/2024 6:41 PM [facility] NRBC Absolute 0.00 <0.10 K/mcL LAB HEMETOLOGY METHOD 10/11/2024 6:41 PM [facility] Neutrophils Relative 61.1 % LAB HEMETOLOGY METHOD 10/11/2024 6:41 PM [facility] Lymphocytes Relative 26.6 % LAB HEMETOLOGY METHOD 10/11/2024 6:41 PM [facility] Monocytes Relative 8.4 % LAB HEMETOLOGY METHOD 10/11/2024 6:41 PM [facility] Eosinophils Relative 2.5 % LAB HEMETOLOGY METHOD 10/11/2024 6:41 PM [facility] Basophils Relative 1.0 % LAB HEMETOLOGY METHOD 10/11/2024 6:41 PM [facility] Immature Granulocytes Relative 0.4 % LAB HEMETOLOGY METHOD 10/11/2024 6:41 PM [facility] Neutrophils Absolute 5.78 1.50 - 7.00 K/mcL LAB HEMETOLOGY METHOD 10/11/2024 6:41 PM [facility] Lymphocytes Absolute 2.52 1.00 - 5.00 K/mcL LAB HEMETOLOGY METHOD 10/11/2024 6:41 PM [facility] Monocytes Absolute 0.79 0.20 - 1.00 K/mcL LAB HEMETOLOGY METHOD 10/11/2024 6:41 PM [facility] Eosinophils Absolute 0.24 0.00 - 0.50 K/mcL LAB HEMETOLOGY METHOD 10/11/2024 6:41 PM [facility] Basophils Absolute 0.09 0.00 - 0.20 K/mcL LAB HEMETOLOGY METHOD 10/11/2024 6:41 PM EDT [facility] Immature Granulocytes Absolute 0.04(H) 0.00 - 0.03 K/mcL LAB HEMETOLOGY METHOD 10/11/2024 6:41 PM EDT [facility] Blood Venous blood specimen / Unknown Venipuncture / Unknown 10/11/2024 6:15 PM EDT 10/11/2024 6:33 PM EDT us Malcolm Mane DO LAB BLOOD ORDERABLES Final Res ult [facility] [address] [place] [address], [place] [phone] * Magnesium (10/11/2024 6:15 PM EDT) Magnesium 2.3 1.9 - 2.6 mg/dL LAB CHEMISTRY METHOD 10/11/2024 7:24 PM EDT [facility] Blood Venous blood specimen / Unknown Venipuncture / Unknown 10/11/2024 6:15 PM EDT 10/11/2024 6:33 PM EDT us Malcolm Mane DO LAB BLOOD ORDERABLES Final Res ult [facility] [address] [place] [address], [place] [phone] * Lipase (10/11/2024 6:15 PM EDT) Lipase 29 13 - 75 unit/L LAB CHEMISTRY METHOD 10/11/2024 7:24 PM EDT [facility] Blood Venous blood specimen / Unknown Venipuncture / Unknown 10/11/2024 6:15 PM EDT 10/11/2024 6:33 PM EDT us Malcolm Mane DO LAB BLOOD ORDERABLES Final Res ult [facility] [address] [place] [address], * (ABNORMAL) Comprehensive metabolic panel (10/11/2024 6:15 PM EDT) Sodium 136 133 - 145 mmol/L LAB CHEMISTRY METHOD [facility] Potassium 3.3(L) 3.5 - 5.5 mmol/L LAB CHEMISTRY METHOD 10/11/2024 7:25 PM [facility] Chloride 101 96 - 110 mmol/L LAB CHEMISTRY METHOD 10/11/2024 7:25 PM [facility] CO2 27 21 - 32 mmol/L LAB CHEMISTRY METHOD 10/11/2024 7:25 PM [facility] Anion Gap 8 3 - 11 LAB CHEMISTRY METHOD 10/11/2024 7:25 PM [facility] Glucose 124(H) 70 - 100 mg/dL LAB CHEMISTRY METHOD 10/11/2024 7:25 PM [facility] BUN 17 5 - 25 mg/dL LAB CHEMISTRY METHOD 10/11/2024 7:25 PM [facility] Creatinine 1.24 0.70 - 1.30 mg/dL LAB CHEMISTRY METHOD 10/11/2024 7:25 PM [facility] eGFR 69 >=60 mL/min/1. 73m2 LAB CHEMISTRY METHOD 10/11/2024 7:25 PM [facility] Comment:Calculation based on the??Chronic Kidney Disease Epidemiology Collaboration (CKD-EPI) equation refit??without adjustment for race. BUN/Creatinine Ratio 13.7 LAB CHEMISTRY METHOD 10/11/2024 7:25 PM [facility] Calcium 9.1 8.5 - 10.5 mg/dL LAB CHEMISTRY METHOD 10/11/2024 7:25 PM EDT [facility] AST (SGOT) 15 10 - 42 unit/L LAB CHEMISTRY METHOD 10/11/2024 7:25 PM EDT [facility] ALT (SGPT) 27 10 - 60 unit/L LAB CHEMISTRY METHOD 10/11/2024 7:25 PM EDT [facility] Alkaline Phosphatase 95 42 - 121 unit/L LAB CHEMISTRY METHOD 10/11/2024 7:25 PM EDT [facility] Total Protein 7.2 6.0 - 8.0 g/dL LAB CHEMISTRY METHOD 10/11/2024 7:25 PM EDT [facility] Albumin 3.7 3.2 - 5.0 g/dL LAB CHEMISTRY METHOD 10/11/2024 7:25 PM EDT [facility] Total Bilirubin 0.2 0.0 - 1.4 mg/dL LAB CHEMISTRY METHOD 10/11/2024 7:25 PM EDT [facility] Blood Venous blood specimen / Unknown Venipuncture / Unknown 10/11/2024 6:15 PM EDT 10/11/2024 6:33 PM EDT us Malcolm Mane DO LAB BLOOD ORDERABLES Final Res ult [facility] [address] [place] [address], from Last 3 Months Insurance [facility] MEDIC[facility] Member Subscriber Plan / Payer (Ef fective 2023-Present) Name:Remigio Peace Relation to Subscriber:Self Name:Remigio Peace Payer ID:[id number] Group ID:[id number] Type:Not on file Address: [place] [address] [id number] Care Teams Hands And Dial Inspector Relationship Specialty Start Date End Date Nandini Hernandez MD [address] [place] [address] PCP - General 09/28/22
[2024-10-13 05:37] VITALS: BP 140/81; PULSE 76; RESP 20; O2SAT 98
[2024-10-13 06:45] VITALS: BP 124/64; PULSE 72; RESP 14; TEMP 36.7; O2SAT 94
== END 2024-10-13 06:47 | disposition home or self-care (01) ==
PROVIDERS: Emergency Provider Emergency Medicine
DX: I16.0 Hypertensive urgency (principal); F33.1 Major depressive disorder, recurrent, moderate; R94.31 Abnormal electrocardiogram [ECG] [EKG]; R51.9 Headache, unspecified; I10 Essential (primary) hypertension; Z79.899 Other long term (current) drug therapy
CPT/HCPCS: 36415; 70450; 80048; 80076; 83880; 84484; 85025; 93005; 99284

== ENCOUNTER → 2024-10-13 04:41 | Outpatient (BNV) | payer OTHER, SELFPAY | PROVIDERS: Emergency Provider Emergency Medicine; Visit Provider Radiology Vascular & Interventional Radiology | DX: I10 Essential (primary) hypertension (principal); R51.9 Headache, unspecified | CPT/HCPCS: 70450 ==

== ENCOUNTER → 2024-10-13 04:41 | Outpatient (BNV) | payer OTHER, SELFPAY | PROVIDERS: Emergency Provider Emergency Medicine; Visit Provider Internal Medicine | DX: I10 Essential (primary) hypertension (principal) | CPT/HCPCS: 93010 ==